=== PATIENT | female | born 1980 | race Caucasian/White ===

== ENCOUNTER 2018-03-26 19:26 | Emergency (ER) | payer SELFPAY ==
[2018-03-26 20:09] LABS: Hematocrit 40 % (35-47); Hemoglobin 13.5 g/dl (12.0-16.0); Mean Corpuscular HGB Conc 34 g/dl (31-36); Mean Corpuscular Hemoglobin 29 pg (27-31); Mean Corpuscular Volume 87 fL (80-97); Mean Platelet Volume 7.7 um3 (7.4-10.4); Platelet Count 257 10^3/ul (150-450); Red Blood Count 4.61 10^6/ul (4.0-5.4); Red Cell Distribution Width 13 % (10.5-15); White Blood Count 10.1 10^3/ul (3.5-10.8)
[2018-03-26 20:13] LABS: ABS Basophils 0.1 10^3/ul (0-0.2); ABS Eosinophils 0.2 10^3/ul (0-0.6); ABS Lymphocytes 2.9 10^3/ul (1.0-4.8); ABS Neutrophils 5.9 10^3/ul (1.5-7.7); ABS Nucleated RBC 0 10^3/ul; Eosinophil % 1.8 % (0-6); Lymphocyte % 28.6 % (25-47); Nucleated Red Blood Cells % 0
--- NOTE | 2018-03-26 20:19 | RAD ---
HISTORY: Palpitations COMPARISONS: June 18, 2006 VIEWS: 4: Frontal dual-energy and lateral views of the chest. FINDINGS: CARDIOMEDIASTINAL SILHOUETTE: The cardiomediastinal silhouette is normal. FILIBERTO: The filiberto are normal. PLEURA: The costophrenic angles are sharp. No pleural abnormalities are noted. LUNG PARENCHYMA: The lungs are clear. ABDOMEN: The upper abdomen is clear. There is no subphrenic gas. BONES AND SOFT TISSUES: No bone or soft tissue abnormalities are noted. OTHER: None. IMPRESSION: NO ACTIVE CARDIOPULMONARY DISEASE.
[2018-03-26 20:20] LABS: EGFR Non-African American 89.2 (>60)
[2018-03-26 20:26] LABS: Urine Appearance Cloudy; Urine Blood Negative (Negative); Urine Color Yellow; Urine Ketones Negative (Negative); Urine Protein Negative (Negative); Urine Urobilinogen Negative (Negative)
[2018-03-26 21:31] VITALS: BP 110/74
--- NOTE | 2018-03-29 21:29 | ED ---
Mynor Hammer Angela, scribed for Spenser Arreguin MD on 03/26/18 at 1942 . Palpitations / Dysrhythmia - HPI Summary HPI Summary: This pt is a 37 y/o female presenting to [facility] via EMS for palpitations today. Pt describes her heart was skipping a beat and states it was intermittent. Pt also states lightheadedness and tingling in bilateral hands. This episode lasted for approx. 2 hours. She went to visit her friend at the fire department who is a supervisor inspection and told him about her symptoms. Her friend called EMS and was sent to the ED. Pt currently states her palpitations have alleviated. Denies chest pain, SOB. She reports having palpitations in the past but they didn't last this long. Pt drinks 3-4 cups of coffee daily. Denies drinking energy drinks. No PMHx. - History of Current Complaint Time Seen by Provider: 03/26/18 19:29 Hx Obtained From: Patient Onset/Duration: Lasting Hours, Resolved - mostly Timing: Intermittent Episodes Lasting: - 2 hours Severity Initially: Mild Severity Currently: None Character: Skipped Beats Aggravating: Nothing Alleviating: Nothing Associated Signs & Symptoms: Lightheadedness - and tingling in bilateral hands - Allergy/Home Medications Allergies/Adverse Reactions: Allergies Allergy/AdvReac Type Severity Reaction Status Date / Time morphine Allergy Hives/Diff. Verified 03/26/18 19:33 Breathing/I tching Home Medications: Home Medications NK [No Home Medications Reported] 03/26/18 [History Confirmed 03/26/18] PMH/Surg Hx/FS Hx/Imm Hx Endocrine/Hematology History: Denies: Hx Diabetes Cardiovascular History: Denies: Hx Hypertension Infectious Disease History: No Infectious Disease History: Denies: Traveled Outside the [place] in Last 30 Days - Family History Known Family History: Positive: Cardiac Disease - father: age 55 - Social History Alcohol Use: Rare Substance Use Type: Reports: None Smoking Status (MU): Former Smoker Review of Systems Negative: Fever Positive: Palpitations. Negative: Chest Pain Negative: Shortness Of Breath Musculoskeletal: Negative Skin: Negative Neurological: Other - POS: lightheadedness Positive: Paresthesia - in bilateral hands All Other Systems Reviewed And Are Negative: Yes Physical Exam - Summary Physical Exam Summary: VITAL SIGNS: Reviewed. GENERAL: Patient is a well-developed and nourished female who is lying comfortable in the stretcher. Patient is not in any acute respiratory distress. HEAD AND FACE: No signs of trauma. No ecchymosis, hematomas or skull depressions. No sinus tenderness. EYES: PERRLA, EOMI x 2, No injected conjunctiva, no nystagmus. EARS: Hearing grossly intact. Ear canals and tympanic membranes are within normal limits. MOUTH: Oropharynx within normal limits. NECK: Supple, trachea is midline, no adenopathy, no JVD, no carotid bruit, no c- spine tenderness, neck with full ROM. CHEST: Symmetric, no tenderness at palpation LUNGS: Clear to auscultation bilaterally. No wheezing or crackles. CVS: Regular rate and rhythm, S1 and S2 present, no murmurs or gallops appreciated. ABDOMEN: Soft, non-tender. No signs of distention. No rebound no guarding, and no masses palpated. Bowel sounds are normal. EXTREMITIES: FROM in all major joints, no edema, no cyanosis or clubbing. NEURO: Alert and oriented x 3. No acute neurological deficits. Speech is normal and follows commands. SKIN: Dry and warm Triage Information Reviewed: Yes Vital Signs On Initial Exam: Initial Vitals Temp Pulse Resp BP Pulse Ox 97 F 83 20 122/78 98 03/26/18 19:30 03/26/18 19:30 03/26/18 19:30 03/26/18 19:30 03/26/18 19:30 Vital Signs Reviewed: Yes Diagnostics - Vital Signs Vital Signs Temp Pulse Resp BP Pulse Ox 03/26/18 19:30 97 F 83 20 122/78 98 - Laboratory Result Diagrams: 03/26/18 19:53 03/26/18 19:53 Lab Statement: Any lab studies that have been ordered have been reviewed, and results considered in the medical decision making process. - Radiology Chest XR Xray Interpretation: No Acute Changes - IMPRESSION: No active cardiopulmonary disease. Dr. Arreguin has reviewed this radiology report. Radiology Interpretation Completed By: Radiologist - EKG 19:33 Cardiac Rate: NL - at 66 bpm EKG Rhythm: Sinus Rhythm EKG Interpretation: No ST elevations. Q wave in III. Course/Dx - Course Assessment/Plan: Pt is a 37 y/o female presenting to [facility] via EMS for palpitations today. Pt describes her heart was skipping a beat and states it was intermittent. Pt also states lightheadedness and tingling in bilateral hands. This episode lasted for approx. 2 hours. She went to visit her friend at the fire department who is a supervisor inspection and told him about her symptoms. Her friend called EMS and was sent to the ED. Pt currently states her palpitations have alleviated. Denies chest pain, SOB. She reports having palpitations in the past but they didn't last this long. Test results without any significant abnormalities. Troponin is negative. TSH is within normal limits. Urinalysis is negative for UTI. Chest XR shows no active cardiopulmonary disease. Since the pt is asymptomatic at this point, with normal blood test, she will be discharged home. Pt was given instructions to decrease her caffeine intake and follow up with cardiology. I discussed all the findings and test results with the patient. All questions were answered to patient satisfaction. There were no further complaints or concerns. She is instructed to return to the ED for any worsening or new symptoms. Pt is hemodynamically stable, alert and oriented x3. - Diagnoses Provider Diagnoses: Palpitations Discharge - Sign-Out/Discharge Documenting (check all that apply): Discharge/Admit/Transfer - Discharge - Discharge Plan Condition: Stable Disposition: HOME Patient Education Materials: Heart Palpitations (ED) Referrals: Gaby Archer MD [Medical Doctor] - Additional Instructions: Please follow up with display designer outside, Dr. Archer. Follow up with your primary care provider. Decrease caffeine intake. RETURN TO THE ED FOR ANY NEW OR WORSENING SYMPTOMS. The documentation as recorded by the Mynor bedolla Angela accurately reflects the service I personally performed and the decisions made by me, Spenser Arreguin MD.
== END 2018-03-26 21:39 | disposition home or self-care (01) ==
LOC: ED 19:26
DX: R00.2 Palpitations (principal); Z87.891 Personal history of nicotine dependence
CPT/HCPCS: 36415; 71046; 80053; 81003; 83735; 84443; 84484; 85025; 93005; 99283